=== PATIENT | female | born 1935 | race Two or more races ===

== ENCOUNTER 2025-07-03 16:35 | Emergency (ER) | payer OTHER, MEDICAID ==
[~2025-07-03] VITALS: Ht 149.9 cm; Wt 43.0 kg
--- NOTE | 2025-07-03 17:09 | ED.PDOC ---
Adan. trauma (HPI) HPI Comments 89 year old female brought in by son presents to the ED with a chief compliant of head injury s/p fall onset today. Son states patient is not able to ambulate on her own, woke up this morning, tried to get out of bed, fell, hit RT side head on corner of night stand. Patient is currently experiencing hematoma to RT eyebrow with redness around RT eye. Son also noticed patient has been experiencing productive cough for the past 2 days. Patient is a poor historian. Son denies LOC,nausea, vomiting, diarrhea, chest pain, shortness of breath, decreased appetite, dysuria, hematuria. No other symptoms or modifying factors present at this time. Chief Complaint: Head Injury Time Seen by MD: 17:00 Reviewed notes: Nurses Notes, Medications, Allergies Allergies: Coded Allergies: NO KNOWN ALLERGIES (Unverified , 07/03/25) Information Source: Patient, Relative Mode of Arrival: Wheelchair Severity: Moderate Timing: Hours Duration: Since onset Prehospital treatment: None Location: Head Location of laceration: None Mechanism: Fall Past Medical History PAST MEDICAL HISTORY: Dementia LOGISTIC MANAGER History: No Pertinent LOGISTIC MANAGER History Family History Family History: Reviewed,noncontributory to illness, No family hx of Cancer, No family hx of DM, No family hx of Heart daphney, No family hx of HTN, No family hx ofKidney daphney, No family hx of Liver daphney, No family hx of Lung daphney, No family hx of Stroke Social History Smoker: Non-Smoker Alcohol: Denies ETOH Use Drugs: Denies Drug Use Lives In: Home Constitutional: denies: chills, diaphoresis, fatigue, fever, malaise, sweats, weakness, others EENTM: reports: others (head injury); denies: blurred vision, double vision, ear bleeding, ear discharge, ear drainage, ear pain, ear ringing, eye pain, eye redness, hearing loss, mouth pain, mouth swelling, nasal discharge, nose bleeding, nose congestion, nose pain, photophobia, tearing, throat pain, throat swelling, voice changes Respiratory: reports: cough; denies: hemoptysis, orthopnea, SOB at rest, shortness of breath, SOB with excertion, stridor, wheezing, others Cardiovascular: denies: chest pain, dizzy spells, diaphoresis, Dyspnea on exertion, edema, irregular heart beat, left arm pain, lightheadedness, palpitations, PND, syncope, others Gastrointestinal: denies: abdomen distended, abdominal pain, blood streaked bowels, constipated, diarrhea, dysphagia, difficulty swallowing, hematemesis, melena, nausea, poor appetite, poor fluid intake, rectal bleeding, rectal pain, vomiting, others Genitourinary: denies: abnormal vagina bleeding, burning, dyspareunia, dysuria, flank pain, frequency, hematuria, incontinence, pain, , vagina discharge, urgency, others Neurological: denies: dizziness, fainting, headache, left sided numbness, left sided weakness, numbness, paresthesia, pre-existing deficit, right sided numbness, right sided weakness, seizure, speech problems, tingling, tremors, weakness, others Musculoskeletal: denies: back pain, gout, joint pain, joint swelling, muscle pain, muscle stiffness, neck pain, others Integumetry: reports: others (hematoma noted to RT eyebrow); denies: bruises, change in color, change in hair/nails, dryness, laceration, lesions, lumps, rash, wounds Allergic/Immunocompromised: denies: Difficulty Healing, Frequent Infections, Hives, Itching, others Hematologic/Lymphatic: denies: anemia, blood clots, easy bleeding, easy bruisin g, swollen glands, others Endocrine: denies: excessive hunger, excessive sweating, excessive thirst, excessive urination, flushing, intolerance to cold, intolerance to heat, unexplained weight gain, unexplained weight loss, others Psychiatric: denies: anxiety, bipolar disorder, depression, hopeless, panic disorder, schizophrenia, sleepless, suicidal, others All Other Systems: Reviewed and Negative Physical Exam General Appearance: Normal HEENT: TMs Normal, Other (hematoma to RT eyebrow) Neck: Full Range of Motion, Non-Tender, Normal, Normal Inspection Respiratory: Chest Non-Tender, Lungs Clear, No Accessory Muscle Use, No Respiratory Distress, Normal Breath Sounds Cardiovascular: No Edema, No JVD, No Murmur, No Gallop, Normal Peripheral Pulses, Regular Rate/Rhythm Breast Exam: Deferred Gastrointestinal: No Organomegaly, Non Tender, No Pulsatile Mass, Normal Bowel Sounds, Soft Genitalia: Deferred Pelvic: Deferred Rectal: Deferred Extremities: No calf tenderness, Normal capillary refill, Normal inspection, Normal range of motion, Non-tender, No pedal edema Musculoskeletal : Apperance: Normal Neurologic: Alert, gate agent II-XII nml as Tested, No Motor Deficits, Normal Affect, Normal Mood, No Sensory Deficits Cerebellar Function: Normal Reflexes: Normal Skin: Dry, Normal Color, Warm Lymphatic: No Adenopathy Was a procedure done? Was a procedure done?: No X-Ray, Labs, Meds, VS Vital Signs Date Time Temp Pulse Resp B/P (MAP) Pulse Ox O2 Delivery O2 Flow Rate FiO2 07/03/25 16:39 97.7 96 16 114/75 94 97.7 X-Ray, Labs, Meds, VS Comment Imaging was reviewed by this provider, there is no obvious pathological or acute disease process. Pending radiology review Labs were reviewed by this provider, no abnormalities Vital signs reviewed by this provider, clinically stable Time of 1ST Reevaluation: 17:30 Reevaluation 1ST: Unchanged Patient Education/Counseling: Diagnosis, Treatment, Prognosis, Need For Follow Up (Follow up with PCP next available appointment. Return to the emergency department if symptoms worsen) Family Education/Counseling: Diagnosis, Treatment, Prognosis Departure 1 Departure Time of Disposition: 19:11 Impression: Primary Impression: Closed head injury Qualified Codes: S09.90XA - Unspecified injury of head, initial encounter Additional Impressions: Cough Qualified Codes: R05.1 - Acute cough Pneumonia Qualified Codes: J18.9 - Pneumonia, unspecified organism Disposition: 01 HOME / SELF CARE / HOMELESS Condition: Fair e-Prescriptions Albuterol Sulfate (Albuterol Sulfate Hfa) 108 Mcg/Act Aer 108 MCG IN TID PRN, #1 AER Prov: IRENA CORTÉS 07/03/25 Amoxicillin & Pot Clavulanate (AUGMENTIN TABLET) 875 Mg Tb 875 MG PO BID for 10 Days, #20 TAB Prov: IRENA CORTÉS 07/03/25 Discharged With: Self Critical Care Note Critical Care Time?: No Stability Stability form required: No Heart Score Heart Score: Heart Score Response (Comments) Value History N/A 0 EKG N/A 0 Age N/A 0 Risk Factors N/A 0 Troponin N/A 0 Total 0 I personally scribed for IRENA CORTÉS ([facility]) on 07/03/25 at 17:09. Electronically submitted by Carolann Savage ([email or web address]). IRENA CORTÉS Jul 03, 2025 17:09
--- NOTE | 2025-07-03 18:18 | DVH ---
CHEST RADIOGRAPH Indication: cough Technique: XY CHEST XRAY 1 VIEW COMPARISON: None FINDINGS: Limited due to patient head positioning. Hiatal hernia. The cardiac silhouette is enlarged. The lungs demonstrate bilateral patchy airspace opacities. The pulmonary vasculature is prominent. There is no pleural effusion. There is no pneumothorax. IMPRESSION: Cardiomegaly with pulmonary vascular congestion and bilateral patchy airspace opacities. Moderate to large hiatal hernia.
--- NOTE | 2025-07-03 18:21 | DVH ---
CT HEAD WITHOUT CONTRAST INDICATION: head injury, pain COMPARISON: None TECHNIQUE: CT of the head without intravenous contrast. RADIATION DOSE: CTDIvol: 51.87 mGy, DLP: 1037.45 mGy*cm FINDINGS: There is no evidence of acute intracranial hemorrhage, extra-axial collection, mass effect, midline shift, herniation or hydrocephalus. The ventricles, sulci and cisterns are age appropriate. The muhammad-white differentiation is intact. Moderate generalized cerebral volume loss with scattered hypodensities in the subcortical, deep, and periventricular white matter of both cerebral hemispheres compatible with moderate chronic small vessel ischemia. The visualized paranasal sinuses and mastoid air cells are clear. Right periorbital edema. IMPRESSION: No evidence of acute intracranial hemorrhage, mass effect or hydrocephalus. None.
[2025-07-03] MEDS ORDERED: AUG875T PO (19:13)
[2025-07-03] MEDS ORDERED: ALBU108A5 IN (19:13)
[2025-07-03 20:08] VITALS: BP 116/61; PULSE 95; RESP 15; TEMP 97.6; O2SAT 100
== END 2025-07-03 20:15 | disposition home or self-care (01) ==
LOC: ER 16:35
DX: S09.8XXA Other specified injuries of head, initial encounter (principal); J18.9 Pneumonia, unspecified organism; R05.9 Cough, unspecified; F03.90 Unspecified dementia, unspecified severity, without behavioral disturbance, psychotic disturbance, mood disturbance, and anxiety; W06.XXXA Fall from bed, initial encounter; Y93.89 Activity, other specified; Y92.092 Bedroom in other non-institutional residence as the place of occurrence of the external cause; Y99.8 Other external cause status
CPT/HCPCS: 70450; 71045